=== PATIENT | male | born 1930 | race Caucasian/White ===

== ENCOUNTER 2016-07-08 18:53 | Observation (INO) | payer MEDICARE, BC ==
[~2016-07-08] VITALS: Ht 185.4 cm; Wt 97.7 kg
[2016-07-08] MEDS ORDERED: SODIUM CHLORIDE 0.9% 250 ML IV ONE (21:52)
[2016-07-08] MEDS ORDERED: SALINE FLUSH 10 ML FLUSH PRN (22:10)
[2016-07-08] MEDS ORDERED: ONDANSETRON 4 MG VIAL IV PRN (22:10)
[2016-07-08] MEDS: SALINE FLUSH 10 ML FLUSH SCH (22:10)
[2016-07-08] MEDS ORDERED: SODIUM CHLORIDE 0.9% 1,000 ML IV SCH (22:10)
[2016-07-08 23:25] VITALS: BP_SYST 124; RESP 20; TEMP 98.2; Ht 185.4 cm; Wt 97.7 kg
[2016-07-08 23:57] VITALS: RESP 16
[2016-07-09] VITALS (7 sets, daily range): BP systolic 102–120; RESP 18; TEMP 97.8–98.6
[2016-07-09] MEDS ORDERED: SODIUM CHLORIDE 0.9% FLUSH BAG 500 ML IV SCH (06:00)
[2016-07-09] MEDS ORDERED: LEVOTHYROXINE 0.137 MG TAB PO SCH (07:00)
[2016-07-09] MEDS ORDERED: PHENYTOIN 100 MG CAP PO SCH (09:00)
[2016-07-09] MEDS: SALINE FLUSH 10 ML FLUSH SCH (09:01)
[2016-07-09] MEDS ORDERED: WARFARIN 4 MG TAB PO SCH (16:00)
[2016-07-09] MEDS ORDERED: Atorvastatin 40 MG TAB PO SCH (21:00)
[2016-07-09] MEDS ORDERED: DONEPEZIL HCL 5 MG TAB PO SCH (21:00)
== END 2016-07-09 15:43 | disposition home or self-care (01) ==
LOC: ENRESERVTM → ENRESERVDT → ER 18:53 → ENPENDDIS 22:10 → EMR 22:10 → 3NT 23:26
PROVIDERS: ADMIT Family Medicine; ATTEND Family Medicine
DX: N17.9 Acute kidney failure, unspecified (principal); I10 Essential (primary) hypertension; I25.10 Atherosclerotic heart disease of native coronary artery without angina pectoris; Z95.1 Presence of aortocoronary bypass graft; I12.9 Hypertensive chronic kidney disease with stage 1 through stage 4 chronic kidney disease, or unspecified chronic kidney disease; N18.4 Chronic kidney disease, stage 4 (severe); I48.2 Chronic atrial fibrillation; E03.9 Hypothyroidism, unspecified; G40.909 Epilepsy, unspecified, not intractable, without status epilepticus; Z86.73 Personal history of transient ischemic attack (TIA), and cerebral infarction without residual deficits; Z79.01 Long term (current) use of anticoagulants; G30.9 Alzheimer's disease, unspecified; F02.80 Dementia in other diseases classified elsewhere, unspecified severity, without behavioral disturbance, psychotic disturbance, mood disturbance, and anxiety; S42.035A Nondisplaced fracture of lateral end of left clavicle, initial encounter for closed fracture; W07.XXXA Fall from chair, initial encounter
CPT/HCPCS: 36415; 70450; 71010; 72125; 73030; 80053; 80162; 81003; 82553; 82947; 84439; 84443; 84484; 85025; 85610; 85730; 93005; 96361; 97799; 99285; G0378; J7050; 94799; 99219